=== PATIENT | male | born 1985 | race Caucasian/White ===

== ENCOUNTER 2019-05-21 00:39 | Emergency (ER) | payer BC, OTHER ==
[2019-05-21 01:16] VITALS: BMI 33.5
--- NOTE | 2019-05-21 01:40 | PDOC ---
History of Present Illness - General Chief Complaint: Pain Stated Complaint: PAIN - History of Present Illness Initial Comments: 34 year old male with no PMH presenting with rectal pain x 1 week where he feels a hot swollen mass near his rectum but not in his anus. Has had difficulty sitting. Has had some chills but no measured fever. Of note, he had a perforated appendix which led to MRSA intrabdomina infection, mutiple abscess and prolonged healing course. He also had a very bad cellulitis No diarrhea, smoking, anal intercourse, constipation, rectal bleeding, nausea, vomiting, chest pain, or other symptoms. 05/21/19 01:36 Past History - Past Medical History Allergies/Adverse Reactions: Allergies Allergy/AdvReac Type Severity Reaction Status Date / Time No Known Allergies Allergy Verified 05/21/19 01:16 Home Medications: Ambulatory Orders Polyethylene Glycol 3350 [Miralax (For Daily Use) -] 17 gm PO DAILY #1 bottle Sulfamethoxazole/Trimethoprim [Bactrim Ds -] 2 tab PO BID 6 Days #30 tablet 03/01 - Psycho Social/Smoking Cessation Hx Smoking History: Never smoked Have you smoked in the past 12 months: No Information on smoking cessation initiated: No Hx Alcohol Use: No Drug/Substance Use Hx: No Review of Systems - Review of Systems Constitutional: No: Chills, Diaphoresis, Fever, Loss of Appetite HEENTM: No: Eye Pain, Blurred Vision, Tearing Respiratory: No: Cough, Orthopnea, Shortness of Breath Cardiac (ROS): No: Edema, Irregular Heart Rate ABD/GI: No: Diarrhea, Nausea, Vomiting : No: Burning, Dysuria, Discharge Neurological: No: Headache, Numbness, Paresthesia Psychiatric: No: Anxiety, Depression Hematologic/Lymphatic: No: Anemia, Blood Clots, Easy Bleeding *Physical Exam - Vital Signs Last Vital Signs Temp Pulse Resp BP Pulse Ox 98.8 F 69 20 137/98 100 05/21/19 01:15 05/21/19 01:15 05/21/19 01:15 05/21/19 01:15 05/21/19 01:15 - Physical Exam General Appearance: Yes: Nourished, Appropriately Dressed. No: Apparent Distress HEENT: positive: EOMI, JOCELINE, Normal ENT Inspection, Normal Voice Neck: positive: Trachea midline, Normal Thyroid, Supple. negative: Tender, Rigid Respiratory/Chest: positive: Lungs Clear, Normal Breath Sounds. negative: Chest Tender, Respiratory Distress Cardiovascular: positive: Regular Rhythm, Regular Rate Gastrointestinal/Abdominal: positive: Normal Bowel Sounds, Flat, Soft. negative : Tender Male Genitalia: positive: normal prostate Rectal Exam: positive: NL Prostate, normal rectal tone, other (Small fluctuant subcutatneous lesion near the anus concernign for small abscess at the dorsal aspect. No intrarectal fluctuance, sharp pain, or defect noted.). negative: normal exam, hemorrhoids Musculoskeletal: positive: Normal Inspection. negative: Decreased Range of Motion Extremity: positive: Normal Capillary Refill, Normal Inspection, Normal Range of Motion. negative: Tender Integumentary: positive: Normal Color, Dry, Warm Neurologic: positive: Fully Oriented, Alert, Normal Mood/Affect, Normal Response , Motor Strength 11/15 ED Treatment Course - LABORATORY CBC & Chemistry Diagram: 05/21/19 02:00 05/21/19 02:00 Medical Decision Making - Medical Decision Making 34 year old male with PMH of intra-abdominal and SST infections presenting with cristal-anal fluctuant subcutaneous lesion. No VS abnormality and labs relatively WNL. CT abdomen pelvis with IV con not demonstrating rectal extension of infection so the lesion was drained with an 11 blade an simple incision. 1cc of purulent material drained from the lesion and gauze were placed over top. Will be discharged with bactrim and wound check in 2 days. 05/21/19 04:59 11 Discharge - Discharge Information Problems reviewed: Yes Clinical Impression/Diagnosis: Cristal-rectal abscess Condition: Improved Disposition: HOME - Admission No - Additional Discharge Information Prescriptions: Polyethylene Glycol 3350 [Miralax (For Daily Use) -] 17 gm PO DAILY #1 bottle Sulfamethoxazole/Trimethoprim [Bactrim Ds -] 2 tab PO BID 6 Days #30 tablet - Follow up/Referral Referrals: Sai Rivas MD [Primary Care Provider] - - Patient Discharge Instructions Patient Printed Discharge Instructions: DI for Anal Abscess - Post Discharge Activity
[2019-05-21] MEDS ORDERED: morphine CARPU-JECT 4 MG/1 ML DISP.SYRIN IVPUSH ONE ×2 (01:58→04:08)
[2019-05-21] MEDS ORDERED: ONDANSETRON 4 MG/2 ML VIAL IVPUSH ONE (01:59)
[2019-05-21] MEDS ORDERED: SODIUM CHLORIDE 0.9% 500 ML INFUS.BAG IV ONE (01:59)
--- NOTE | 2019-05-21 01:59 | PDOC ---
Attending Attestation - Resident Resident Name: [email or web address] - ED Attending Attestation I have performed the following: I have examined & evaluated the patient, The case was reviewed & discussed with the resident, I agree w/resident's findings & plan, Exceptions are as noted - HPI HPI: 05/21/19 01:57 34-year-old male no past medical history here today complaining of rectal pain. Patient states that he had a hard stool approximately 1 week ago he was constipated at that time did strain to go and felt like he had a ripping painful sensation. Is been having pain ever since then started developing fevers and chills now the pain is so severe that he is unable to sit pain is deep in his rectum denies any nausea or vomiting. No known history of hemorrhoids. Per mother who is here with patient patient has a history of severe MRSA infections including a soft tissue infection which required hospitalization for 2 weeks. In addition he has a history of ruptured appendectomy followed by intra-abdominal abscesses in the past. Did not take anything for his pain prior to arrival - Physicial Exam PE: 05/21/19 01:58 Awake alert no acute distress lungs are clear bilaterally heart is regular without any murmurs rubs or gallops abdomen is soft and nontender rectal exam reveals a small fluctuance with yellow discoloration and likely abscess the 12 o 'clock position. There is some intrarectal tenderness in the 12 o'clock position no palpable fluctuance. There is a supragluteal cleft but no cyst or abscess palpated skin is otherwise warm dry and intact no rash neurologic patient is awake alert and oriented x3 - Medical Decision Making 05/21/19 01:59 34-year-old male history of comp gated infections including MRSA and previous intra-abdominal abscesses following appendectomy here with transfer perirectal abscess. Plan CT abdomen pelvis to evaluate the depth of the infection to the proximity to the anus will likely require surgical drainage patient be given morphine for pain control CBC CMP and antibiotics
[2019-05-21] MEDS ORDERED: morphine SULFATE 4 MG/ML VIAL ONE ×2 (02:03→04:22)
[2019-05-21] MEDS ORDERED: ONDANSETRON 4 MG/2 ML VIAL ONE (02:03)
[2019-05-21 02:16] LABS: BASO % 1.1 % (0-2.0); EOS % 2.7 % (0-4.5); HEMATOCRIT 41.5 % (35.4-49); HEMOGLOBIN 14.4 GM/dL (11.7-16.9); LYMPH % 22.6 % (8-40); MCH 32.8 pg (25.7-33.7); MCHC 34.6 g/dl (32.0-35.9); MEAN CELL VOLUME 94.7 fl (80-96); MEAN PLT VOLUME 8.8 fl (7.5-11.1); MONO % 9.9 % (3.8-10.2); NEUT % 63.7 % (42.8-82.8); PLATELET COUNT 253 K/MM3 (134-434); RBC 4.38 M/mm3 (4.00-5.60); RDW 12.5 % (11.9-15.9); WHITE BLOOD COUNT 11.4 K/mm3 (4.0-10.0)
[2019-05-21 02:35] LABS: INR 1.18 (0.83-1.09); PROTHROMBIN TIME (PATIENT) 13.9 SEC (9.7-13.0)
[2019-05-21 02:46] LABS: ALBUMIN 3.9 g/dl (3.4-5.0); BILIRUBIN,TOTAL 0.9 mg/dL (0.2-1); BLOOD UREA NITROGEN 11.2 mg/dL (7-18); CALCIUM 8.8 mg/dL (8.5-10.1); POTASSIUM 3.9 mmol/L (3.5-5.1); TOT PROT 7.4 g/dl (6.4-8.2)
[2019-05-21] MEDS ORDERED: SULFAMETHOXAZOLE/TRIMETHOPRIM 800MG/160MG D.S. TABLET PO ONE (05:11)
[2019-05-21] MEDS ORDERED: SULFAMETHOXAZOLE/TRIMETHOPRIM 800MG/160MG D.S. TABLET ONE (05:22)
[2019-05-21 05:39] VITALS: BP 118/65; PULSE 62; TEMP 98.2
== END 2019-05-21 05:37 | disposition home or self-care (01) ==
LOC: JER 00:39
PROC: 0D9P0ZZ Drainage of Rectum, Open Approach (ICD-10-PCS; principal; 2019-05-21)
PROC: 3E033NZ Introduction of Analgesics, Hypnotics, Sedatives into Peripheral Vein, Percutaneous Approach (ICD-10-PCS; 2019-05-21)
PROC: 3E033NZ Introduction of Analgesics, Hypnotics, Sedatives into Peripheral Vein, Percutaneous Approach (ICD-10-PCS; 2019-05-21)
PROC: 3E033GC Introduction of Other Therapeutic Substance into Peripheral Vein, Percutaneous Approach (ICD-10-PCS; 2019-05-21)
DX: K61.1 Rectal abscess (principal); Z86.14 Personal history of Methicillin resistant Staphylococcus aureus infection
CPT/HCPCS: 36415; 74177-TC; 80053; 85025; 85610; 87070; 87186; 87205; 99283-25

== ENCOUNTER 2019-05-23 20:59 | Emergency (ER) | payer BC, OTHER ==
[2019-05-23 21:04] VITALS: BP 127/75; PULSE 67; TEMP 98.3; BMI 33.5
--- NOTE | 2019-05-23 21:22 | PDOC ---
Suture Removal/Wound Check HPI - History of Present Illness Chief Complaint: Revisit,Wound Recheck Stated Complaint: REVISIT Time Seen by Provider: 05/23/19 21:09 History Source: Yes: Patient Exam Limitations: Yes: No Limitations [facility] Date of Last ED visit: 05/21/19 - Previous ED Treatment Type of procedure performed on last visit: Yes: I&D of Abscess Antibiotics Prescribed: Yes - Onset of Previous Treatment Date of Occurence: 05/21/19 Comment:: 05/23/19 21:24 Patient returns for wound check of I&D of perianal abscess. Patient was seen two days prior for abscess just above anus. Wound mildly tender with minimal purulent discharge on exam. No packing placed at time of I&D. Patient reports that the abscess feels better, has decreased in size, and is less tender than prior to I&D. Wound culture checked, e.coli sensitive to Bactrim. Patient has been taking Bactrim as rxed, advised patient to complete entire course of abx. Return precautions given. Past History - Past Medical History Allergies/Adverse Reactions: Allergies Allergy/AdvReac Type Severity Reaction Status Date / Time No Known Allergies Allergy Verified 05/21/19 01:16 Home Medications: Ambulatory Orders Polyethylene Glycol 3350 [Miralax (For Daily Use) -] 17 gm PO DAILY #1 bottle Sulfamethoxazole/Trimethoprim [Bactrim Ds -] 2 tab PO BID 6 Days #30 tablet 03/01 COPD: No - Surgical History Appendectomy: Yes GI Surgery: Yes (exp. lap) - Psycho Social/Smoking Cessation Hx Smoking History: Never smoked Have you smoked in the past 12 months: No Hx Alcohol Use: No Drug/Substance Use Hx: No *Physical Exam - Vital Signs Last Vital Signs Temp Pulse Resp BP Pulse Ox 98.3 F 67 20 127/75 98 05/23/19 21:00 05/23/19 21:00 05/23/19 21:00 05/23/19 21:00 05/23/19 21:00 Discharge - Discharge Information Problems reviewed: Yes Clinical Impression/Diagnosis: Wound check, abscess Condition: Stable Disposition: HOME - Admission No - Follow up/Referral - Patient Discharge Instructions Additional Instructions: As discussed, complete the entire course of antibiotics. If you develop fever, worsening pain or swelling to the site of the abscess, diarrhea, vomiting, or any new or worsening symptoms, please return to the ER. - Post Discharge Activity
== END 2019-05-23 21:42 | disposition home or self-care (01) ==
LOC: JERFT 20:59
DX: Z48.817 Encounter for surgical aftercare following surgery on the skin and subcutaneous tissue (principal); K61.0 Anal abscess
CPT/HCPCS: 99281-25